=== PATIENT | male | born 1960 | race Caucasian/White ===

== ENCOUNTER 2016-05-17 00:15 | Emergency (ER) | payer OTHER ==
[~2016-05-17 00:15] MED LIST: ALLER-EASE180 MG PO; ASPIR 8181 MG PO; COMBIVENT RESPIM4 GM INH; FERROUS SULFAT325 MG PO; FEXOFENADINE H180 MG PO; FLOMAX 0.4 MG0.4 MG PO; HYDROXYZINE HCL50 MG PO; ISOSORBIDE MONO30 MG PO; LISINOPRIL40 MG PO; MONTELUKAST SOD10 MG PO; NICOTINE PATCH1 EAC1 TD; NITROSTAT0.4 MG SL; OMEPRAZOLE40 MG PO; PERCOCET 5-3251 EACH PO; PRAVASTATIN SOD10 MG PO; REQUIP0.25 MG PO; ROBAXIN500 MG PO; SYMBICORT 160-1 INHA INH; THERAGRAN M TAB1 EA PO; TRAZODONE HCL150 MG PO; VITAMIN B-121000 MC3 PO; VITAMIN D50000 UNIT PO
[2016-05-17 01:38] LABS: HEMOGLOBIN 14.3 gm/dl (14.0-17.5); RED BLOOD COUNT 4.31 M/UL (4.20-5.50); WHITE BLOOD COUNT 18.5 K/UL (4.5-11.0)
== END 2016-05-17 11:38 ==
LOC: ER1 00:15
PROVIDERS: Student in an Organized Health Care Education/Training Program
DX: N17.9 Acute kidney failure, unspecified (principal); K92.2 Gastrointestinal hemorrhage, unspecified; I86.4 Gastric varices; L03.115 Cellulitis of right lower limb
CPT/HCPCS: 36415; 73610; 80053; 82272; 83605; 83690; 85025; 85610; 85730; 86140; 86850; 86900; 86901; 87040; 87070; 87205; 93005; 96365; 96366; 96367; 96375; 96376; 99291; C9113; G0480; J2060; J2270; J2405; J3370; J3411; J3475

== ENCOUNTER → 2020-04-08 | Outpatient (CLI) | payer OTHER ==
[~2020-04-08] MED LIST changes: +ADVAIR 250-501 EACH INH; +ALDACTONE25 MG PO; +ASCORBIC ACID500 MG PO; +B-1100 MG PO; +BACTRIM DS TAB1 EACH PO; +CYCLOBENZAPRINE5 MG PO; +FERROUS SULFAT325 M2 PO; +FOLIC ACID 1 MG1 MG PO; +FUROSEMIDE20 MG PO; +ISOSORBIDE MONO60 MG PO; +KEFLEX CAP 500500 MG PO; +PROTONIX40 MG PO; +PROVENTIL HFA6.7 GM INH; +REQUIP5 MG PO; +TRAMADOL HCL50 MG PO
== END ==
LOC: KOH-I 14:52
DX: I71.2 Thoracic aortic aneurysm, without rupture (principal); I65.23 Occlusion and stenosis of bilateral carotid arteries; K82.0 Obstruction of gallbladder
CPT/HCPCS: 71250; 74176; 93880

== ENCOUNTER → 2020-04-10 | Outpatient (CLI) | payer OTHER | LOC: HEART 5 09:30 | DX: Z01.818 Encounter for other preprocedural examination (principal); J30.9 Allergic rhinitis, unspecified; I71.2 Thoracic aortic aneurysm, without rupture; R60.0 Localized edema; I71.1 Thoracic aortic aneurysm, ruptured; I08.8 Other rheumatic multiple valve diseases | CPT/HCPCS: 93306; 93970 ==

== ENCOUNTER 2020-06-06 00:04 | Observation (INO) | payer OTHER ==
[~2020-06-06] VITALS: Ht 175.3 cm; Wt 81.6 kg
[~2020-06-06 00:04] MED LIST changes: -ADVAIR 250-501 EACH INH; -ALDACTONE25 MG PO; -ASCORBIC ACID500 MG PO; -B-1100 MG PO; -CYCLOBENZAPRINE5 MG PO; -FERROUS SULFAT325 M2 PO; -FOLIC ACID 1 MG1 MG PO; -FUROSEMIDE20 MG PO; -HYDROXYZINE HCL50 MG PO; -ISOSORBIDE MONO60 MG PO; -PROTONIX40 MG PO; -PROVENTIL HFA6.7 GM INH; -REQUIP5 MG PO; -TRAMADOL HCL50 MG PO
[2020-06-06 01:59] LABS: HEMOGLOBIN 11.1 gm/dl (14.0-17.5); RED BLOOD COUNT 3.56 M/UL (4.20-5.50); WHITE BLOOD COUNT 8.6 K/UL (4.5-11.0)
[2020-06-06 02:22] LABS: BUN/CREATININE RATIO 19 (0-10)
[2020-06-06] MEDS ORDERED: TRAMADOL HCL50 MG PO (09:14)
[2020-06-06] MEDS ORDERED: REQUIP5 MG PO (09:14)
[2020-06-06] MEDS ORDERED: CYCLOBENZAPRINE5 MG PO (09:15)
[2020-06-06] MEDS ORDERED: PROTONIX40 MG PO (09:15)
[2020-06-06] MEDS ORDERED: FOLIC ACID 1 MG1 MG PO (09:16)
[2020-06-06] MEDS ORDERED: FERROUS SULFAT325 M2 PO (09:17)
[2020-06-06] MEDS ORDERED: FUROSEMIDE20 MG PO (09:17)
[2020-06-06] MEDS ORDERED: ALDACTONE25 MG PO (09:17)
[2020-06-06] MEDS ORDERED: PROVENTIL HFA6.7 GM INH (09:18)
[2020-06-06] MEDS ORDERED: TRAZODONE HCL150 MG PO (09:19)
[2020-06-06] MEDS ORDERED: ADVAIR 250-501 EACH INH (09:19)
[2020-06-06] MEDS ORDERED: ASCORBIC ACID500 MG PO (09:21)
[2020-06-06] MEDS ORDERED: B-1100 MG PO (09:22)
[2020-06-06] MEDS ORDERED: HYDROXYZINE HCL50 MG PO (22:57)
[2020-06-07 03:52] LABS: HEMOGLOBIN 10.3 gm/dl (14.0-17.5); RED BLOOD COUNT 3.34 M/UL (4.20-5.50); WHITE BLOOD COUNT 8.6 K/UL (4.5-11.0)
[2020-06-08 04:53] LABS: HEMOGLOBIN 10.4 gm/dl (14.0-17.5); RED BLOOD COUNT 3.36 M/UL (4.20-5.50); WHITE BLOOD COUNT 8.6 K/UL (4.5-11.0)
[2020-06-08] MEDS ORDERED: ISOSORBIDE MONO60 MG PO (10:35)
[2020-06-09 07:08] LABS: CREATININE, URINE 47.1 mg/dL (Not Estab.)
== END 2020-06-08 12:17 | disposition home or self-care (01) ==
LOC: ER1 00:04 → CDU 08:29 → M/S 18:47
PROVIDERS: Emergency Medicine; Internal Medicine Nephrology; Physician Assistant Medical; ADMIT Internal Medicine
DX: R07.89 Other chest pain (principal); N17.9 Acute kidney failure, unspecified; I12.9 Hypertensive chronic kidney disease with stage 1 through stage 4 chronic kidney disease, or unspecified chronic kidney disease; N18.30 Chronic kidney disease, stage 3 unspecified; I71.4 Abdominal aortic aneurysm, without rupture; K21.9 Gastro-esophageal reflux disease without esophagitis; K70.30 Alcoholic cirrhosis of liver without ascites; F10.10 Alcohol abuse, uncomplicated; F17.210 Nicotine dependence, cigarettes, uncomplicated; D50.9 Iron deficiency anemia, unspecified; F41.9 Anxiety disorder, unspecified; J44.9 Chronic obstructive pulmonary disease, unspecified; E87.2 Acidosis; E55.9 Vitamin D deficiency, unspecified; F32.9 Major depressive disorder, single episode, unspecified; Z96.698 Presence of other orthopedic joint implants; Z20.822 Contact with and (suspected) exposure to COVID-19; Z79.82 Long term (current) use of aspirin; Z79.891 Long term (current) use of opiate analgesic; Z79.51 Long term (current) use of inhaled steroids; Z79.899 Other long term (current) drug therapy
CPT/HCPCS: 36415; 71045; 71250; 80048; 80053; 80061; 82043; 82550; 82553; 82570; 82728; 82803; 83036; 83540; 83550; 83690; 83735; 83874; 83880; 84156; 84484; 85025; 85027; 93005; 94640; 94664; 94760; 96365; 96372; 96375; 99285; G0378; J3475; U0002

== ENCOUNTER → 2020-07-10 | Outpatient (CLI) | payer OTHER ==
[~2020-07-10] MED LIST changes: +ADVAIR 250-501 EACH INH; +ALDACTONE25 MG PO; +ASCORBIC ACID500 MG PO; +B-1100 MG PO; +CYCLOBENZAPRINE5 MG PO; +FERROUS SULFAT325 M2 PO; +FOLIC ACID 1 MG1 MG PO; +FUROSEMIDE20 MG PO; +HYDROXYZINE HCL50 MG PO; +ISOSORBIDE MONO60 MG PO; +PROTONIX40 MG PO; +PROVENTIL HFA6.7 GM INH; +REQUIP5 MG PO; +TRAMADOL HCL50 MG PO
== END ==
LOC: ECHO 12:00 → NM 13:00 → ECHO 13:07
DX: I20.9 Angina pectoris, unspecified (principal); R94.39 Abnormal result of other cardiovascular function study
CPT/HCPCS: ECHO; 36415; 78452; 80061; 80076; 93017; 93306; A9502; J2785

== ENCOUNTER → 2020-10-21 | Outpatient (CLI) | payer OTHER ==
[~2020-10-21] MED LIST changes: +ALLERGY RELIEF180 MG PO; +ATORVASTATIN CA40 MG PO; +CARAFATE 1 GM TA1 GM PO; +DAILY VALUE1 EACH PO; +K-TAB ER20 MEQ PO; +LOW DOSE ASPIRI81 MG PO; +VENTOLIN HFA 66.7 GM INH; +ZESTRIL 40 MG T40 MG PO
[2020-10-21 13:31] LABS: HEMOGLOBIN 10.9 gm/dl (14.0-17.5); RED BLOOD COUNT 3.37 M/UL (4.20-5.50); WHITE BLOOD COUNT 6.1 K/UL (4.5-11.0)
== END ==
LOC: LAB 12:25
PROVIDERS: Internal Medicine Interventional Cardiology
DX: I25.119 Atherosclerotic heart disease of native coronary artery with unspecified angina pectoris (principal); R07.9 Chest pain, unspecified; I12.9 Hypertensive chronic kidney disease with stage 1 through stage 4 chronic kidney disease, or unspecified chronic kidney disease; N18.30 Chronic kidney disease, stage 3 unspecified
CPT/HCPCS: 36415; 85025; 85610; 85730

== ENCOUNTER 2020-10-29 08:21 | Outpatient (CLI) | payer OTHER ==
[~2020-10-29] VITALS: Ht 172.7 cm; Wt 76.2 kg
[~2020-10-29 08:21] MED LIST changes: -ALLERGY RELIEF180 MG PO; -ATORVASTATIN CA40 MG PO; -CARAFATE 1 GM TA1 GM PO; -DAILY VALUE1 EACH PO; -K-TAB ER20 MEQ PO; -LOW DOSE ASPIRI81 MG PO; -VENTOLIN HFA 66.7 GM INH; -ZESTRIL 40 MG T40 MG PO
[2020-10-29] MEDS ORDERED: FUROSEMIDE20 MG PO (09:40)
[2020-10-29] MEDS ORDERED: ALLERGY RELIEF180 MG PO (09:40)
[2020-10-29] MEDS ORDERED: ZESTRIL 40 MG T40 MG PO (09:42)
[2020-10-29] MEDS ORDERED: DAILY VALUE1 EACH PO (09:42)
[2020-10-29] MEDS ORDERED: CARAFATE 1 GM TA1 GM PO (09:43)
[2020-10-29] MEDS ORDERED: K-TAB ER20 MEQ PO (09:43)
[2020-10-29] MEDS ORDERED: FLOMAX 0.4 MG0.4 MG PO (09:44)
[2020-10-29] MEDS ORDERED: TRAMADOL HCL50 MG PO (09:45)
[2020-10-29] MEDS ORDERED: B-1100 MG PO (09:45)
[2020-10-29] MEDS ORDERED: TRAZODONE HCL150 MG PO (09:46)
[2020-10-29] MEDS ORDERED: VENTOLIN HFA 66.7 GM INH (09:46)
[2020-10-29] MEDS ORDERED: ATORVASTATIN CA40 MG PO ×2 (18:30→18:32)
[2020-10-29] MEDS ORDERED: LOW DOSE ASPIRI81 MG PO (18:31)
[2020-10-29] MEDS ORDERED: CYCLOBENZAPRINE5 MG PO (18:32)
[2020-10-29] MEDS ORDERED: FERROUS SULFAT325 MG PO (18:33)
== END 2020-10-29 22:40 | disposition home or self-care (01) ==
LOC: CATH 08:21 → MED SURG 4 20:13 → CATH 22:40
PROVIDERS: Internal Medicine Interventional Cardiology
DX: I25.119 Atherosclerotic heart disease of native coronary artery with unspecified angina pectoris (principal); I12.9 Hypertensive chronic kidney disease with stage 1 through stage 4 chronic kidney disease, or unspecified chronic kidney disease; N18.30 Chronic kidney disease, stage 3 unspecified; E78.5 Hyperlipidemia, unspecified; Z79.899 Other long term (current) drug therapy; Z79.82 Long term (current) use of aspirin; Z79.891 Long term (current) use of opiate analgesic; Z88.8 Allergy status to other drugs, medicaments and biological substances; F17.200 Nicotine dependence, unspecified, uncomplicated
CPT/HCPCS: 36415; 80048; 85347; 93571; 99152; 99153; C1769; C1887; J0153; J0461; J1644; J2250; J3010; J7030; Q9965

== ENCOUNTER → 2020-12-06 | Outpatient (CLI) | payer OTHER ==
[~2020-12-06] MED LIST changes: +ALLERGY RELIEF180 MG PO; +ATORVASTATIN CA40 MG PO; +CARAFATE 1 GM TA1 GM PO; +DAILY VALUE1 EACH PO; +K-TAB ER20 MEQ PO; +LOW DOSE ASPIRI81 MG PO; +VENTOLIN HFA 66.7 GM INH; +ZESTRIL 40 MG T40 MG PO
== END ==
LOC: EXRD 11:42
DX: Z01.811 Encounter for preprocedural respiratory examination (principal); R06.02 Shortness of breath
CPT/HCPCS: 94060; 94729

== ENCOUNTER → 2020-12-10 | Outpatient (CLI) | payer OTHER | LOC: US 10:00 → CT 11:30 | PROVIDERS: Thoracic Surgery (Cardiothoracic Vascular Surgery) | DX: Z01.812 Encounter for preprocedural laboratory examination (principal); N18.32 Chronic kidney disease, stage 3b; I71.2 Thoracic aortic aneurysm, without rupture; I25.10 Atherosclerotic heart disease of native coronary artery without angina pectoris; R09.89 Other specified symptoms and signs involving the circulatory and respiratory systems; J90 Pleural effusion, not elsewhere classified; I71.4 Abdominal aortic aneurysm, without rupture; I65.23 Occlusion and stenosis of bilateral carotid arteries | CPT/HCPCS: 36415; 71250; 80053; 81001; 82570; 84156; 93880; 93985 ==

== ENCOUNTER → 2021-02-03 | Outpatient (CLI) | payer OTHER | LOC: LAB 13:22 | PROVIDERS: Internal Medicine Nephrology | DX: N18.32 Chronic kidney disease, stage 3b (principal) | CPT/HCPCS: 36415; 80053; 82570; 84156 ==

== ENCOUNTER → 2021-05-05 | Outpatient (CLI) | payer OTHER | LOC: EXRD 09:18 | DX: Z00.00 Encounter for general adult medical examination without abnormal findings (principal); Z95.1 Presence of aortocoronary bypass graft | CPT/HCPCS: 71046 ==

== ENCOUNTER → 2021-08-29 | Outpatient (CLI) | payer OTHER | LOC: RAD 14:34 | DX: R07.89 Other chest pain (principal); S22.42XA Multiple fractures of ribs, left side, initial encounter for closed fracture | CPT/HCPCS: 71046 ==

== ENCOUNTER → 2021-10-10 | Outpatient (CLI) | payer OTHER | LOC: LAB 12:12 | PROVIDERS: Internal Medicine Nephrology | DX: N18.32 Chronic kidney disease, stage 3b (principal) | CPT/HCPCS: 36415; 80053; 82570; 84156 ==

== ENCOUNTER → 2021-12-15 | Outpatient (CLI) | payer OTHER | LOC: KOH-I 13:24 | DX: F17.210 Nicotine dependence, cigarettes, uncomplicated (principal) | CPT/HCPCS: 71271 ==